=== PATIENT | female | born 1985 ===

== ENCOUNTER 2020-06-04 22:50 | Emergency (ER) | payer SELFPAY ==
[~2020-06-04] VITALS: Ht 167.6 cm; Wt 76.2 kg
[2020-06-04] MEDS ORDERED: EPINEPHRINE 1 MG/ML, 1ML ONE (22:58)
[2020-06-04] MEDS ORDERED: methylPREDNISolone SOD SUCC 125 MG/2 ML ONE (22:58)
[2020-06-04] MEDS ORDERED: DIPHENHYDRAMINE 50 MG/ML, 1ML ONE (22:58)
[2020-06-04] MEDS ORDERED: FAMOTIDINE 20 MG/2 ML IVPush ONE (23:00)
[2020-06-04] MEDS ORDERED: EPINEPHRINE 1 MG/ML, 1ML SQ ONE (23:00)
[2020-06-04] MEDS ORDERED: methylPREDNISolone SOD SUCC 125 MG/2 ML IVPush ONE (23:00)
[2020-06-04] MEDS ORDERED: SODIUM CHLORIDE FLUSH 10ML SYR IVF ONE (23:00)
[2020-06-04] MEDS ORDERED: DIPHENHYDRAMINE 50 MG/ML, 1ML IVPush ONE (23:00)
[2020-06-04] MEDS ORDERED: FAMOTIDINE 20 MG/2 ML ONE (23:00)
--- NOTE | 2020-06-04 23:06 | NUR ---
pt wheeled back to [facility], after arriving and having a heavy allergic reaction to pills she took. pts face is swollen and eyes are swollen shut, and pt c/o of tongue swelling. pt placed on cr monitor, airway remains intact, pt states some difficulty in the back of her throat. MD to bedside emergently, and pt medicated with epi, benadryl, solumedrol and pepcid (see EMAR for dosing). pt tolerated well. piv started to left AC x1 attempt. ekg done. and pt placed on o2 NC 2LPM, for a low o2 sat of 91%. clear breath sounds, and o2 sat increased to 99% on o2.
--- NOTE | 2020-06-04 23:07 | NUR ---
pt able to open eyes a little at this time. remains on cr monitor for monitoring, and pt to be watched until meds take effect. airway intact. good aeration and oxygenation.
--- NOTE | 2020-06-04 23:27 | NUR ---
pt resting comfortably on cr monitor. pts friend left phone number for us to call him when she is due to be d/c'd. he will also update her family.
--- NOTE | 2020-06-05 00:21 | NUR ---
TASK RN: PT RESTING ON GURNEY, NAD, FACIAL SWELLING STILL NOTED, DENIES DIFFICULTY SWALLOWING, VSS, BED IN LOWEST, RAILS ENGAGED, CALL LIGHT ON LAP, WCTM.
[2020-06-05 01:05] VITALS: BP 126/66
--- NOTE | 2020-06-05 01:07 | NUR ---
SECOND CUTTER: PT HAS A RIDE HOME. VS STABLE. PT VERBALIZES DISCHARGE INSTRUCTIONS. DISCHARGED PER DR CHIRINOS.
== END 2020-06-05 01:18 | disposition home or self-care (01) ==
LOC: ED 23:35
DX: L50.0 Allergic urticaria (principal); T39.315A Adverse effect of propionic acid derivatives, initial encounter; R22.0 Localized swelling, mass and lump, head; R06.00 Dyspnea, unspecified; R00.0 Tachycardia, unspecified; Y92.89 Other specified places as the place of occurrence of the external cause
CPT/HCPCS: 93005; 96372; 96374; 96375; 99284; J0171; J1200; J2930